=== PATIENT | female | born 1970 | race Caucasian/White ===

== ENCOUNTER 2018-06-02 17:10 | Emergency (ER) | payer MEDICAID ==
[~2018-06-02] VITALS: Ht 160 cm; Wt 79.0 kg
[2018-06-02 17:15] VITALS: BP 139/92
--- NOTE | 2018-06-02 17:20 | NUR ---
AFTER PROVIDING URINE SAMPLE, PT AMBULATES TO CHAIR, SUPPORT SERVICES SPECIALIST JILL NOTIFIED
[2018-06-02] MEDS ORDERED: KETOROLAC 60 MG/2 ML VIAL IM ONE (17:35)
[2018-06-02] MEDS ORDERED: HYDROmorphone PFS 2 MG/ML SYR IM ONE (17:40)
[2018-06-02] MEDS ORDERED: GLYCOPYRROLATE 0.2 MG/ML VIAL IV ONE (19:00)
[2018-06-02] MEDS ORDERED: cefTRIAXone 1,000 MG in LIDOCAINE 1% ***ER ONLY *** 2.1 ML IM ONE (19:15)
[2018-06-02 19:21] LABS: APPEARANCE,URINE SLIGHTLY BLOODY (CLEAR); COLOR,URINE YELLOW (YELLOW)
[2018-06-02 19:23] LABS: BILIRUBIN,URINE NEGATIVE (NEGATIVE); BLOOD, URINE 3+ (NEGATIVE); NITRITE, URINE POSITIVE (NEGATIVE); UGLUCOSE NEGATIVE (NEGATIVE)
[2018-06-02 19:24] LABS: LEUKOCYTE ESTERASE ,URINE 1+ (NEGATIVE)
[2018-06-02] MEDS ORDERED: cefTRIAXone 1,000 MG VIAL ONE (19:27)
[2018-06-02] MEDS ORDERED: LIDOCAINE MPF 1% - 5 mL VIAL 5 ML ONE (19:27)
[2018-06-02 19:31] LABS: RBC,URINE 20-50 /HPF (0-5); WBC,URINE 0-5 (RARE) /HPF (0-5)
[2018-06-02] MEDS ORDERED: ONDANSETRON 4 MG/2 ML VIAL IVP ONE (19:45)
--- NOTE | 2018-06-02 19:45 | NUR ---
PT VOMITING; SUDDEN ONSET X1. ER DR NOTIFIED. WILL FOLLOW UP WITH ORDERS. WILL CONTINUE TO MONITOR. DAUGHTERS AT BEDSIDE.
[2018-06-02] MEDS ORDERED: ONDANSETRON 4 MG ODT PO ONE (20:00)
--- NOTE | 2018-06-02 20:42 | NUR ---
Patient discharged with v/s stable. Written and verbal after care instructions given and explained. Patient alert, oriented and verbalized understanding of instructions. Wheel Chair Assisted with by daughter. All questions addressed prior to discharge. ID band removed. Patient advised to follow up with PMD. Rx of Flomax, Tramadol Hydrochloride and Bentyl given. Patient educated on indication of medication including possible reaction and side effects. Opportunity to ask questions provided and answered.
[2018-06-02 21:39] VITALS: BP 130/70
== END 2018-06-02 20:42 | disposition home or self-care (01) ==
LOC: MED 17:10 → EDBD 17:10 → MED 20:42
DX: K80.20 Calculus of gallbladder without cholecystitis without obstruction (principal); N39.0 Urinary tract infection, site not specified
CPT/HCPCS: 74176; 81001; 81025; 87086; 96372; 99284; J0696; J1170; J1885; J2001; J3490; Q0162; J2405